=== PATIENT | male | born 1945 | race Caucasian/White ===

== ENCOUNTER → 2017-06-15 09:30 | Outpatient (CLI) | payer MEDICARE, OTHER ==
[2013-04-08 14:15] VITALS: BMI 39.5
[~2017-06-15 09:30] MED LIST: AMBIEN10 MG PO; BACTRIM DS TABL1 TAB PO; CARDIZEM CD120 MG PO; K-DUR20 MEQ PO; LASIX40 MG PO; XARELTO15 MG PO
== END | disposition home or self-care (01) ==
LOC: D.US 09:30
DX: E80.6 Other disorders of bilirubin metabolism (principal)

== ENCOUNTER → 2019-10-31 09:04 | Outpatient (CLI) | payer MEDICARE, OTHER ==
[2013-04-08 14:15] VITALS: BMI 39.5
== END | disposition home or self-care (01) ==
LOC: D.HCCECHO 09:00
PROVIDERS: ATTEND Internal Medicine Cardiovascular Disease
DX: I10 Essential (primary) hypertension (principal)

== ENCOUNTER → 2020-11-05 10:39 | Outpatient (CLI) | payer MEDICARE, OTHER ==
[2013-04-08 14:15] VITALS: BMI 39.5
== END | disposition home or self-care (01) ==
LOC: D.HCCECHO 10:39
PROVIDERS: ATTEND Internal Medicine Cardiovascular Disease
DX: I34.0 Nonrheumatic mitral (valve) insufficiency (principal)